=== PATIENT | male | born 1970 | race Caucasian/White ===

== ENCOUNTER 2020-03-26 13:43 | Emergency (ER) | payer OTHER ==
[2020-03-26] MEDS ORDERED: ENDOCET 5-3251 EACH PO ×2 (17:21→17:30)
== END 2020-03-26 19:23 | disposition home or self-care (01) ==
LOC: ER1 13:43
DX: S22.42XA Multiple fractures of ribs, left side, initial encounter for closed fracture (principal); W06.XXXA Fall from bed, initial encounter; Y92.009 Unspecified place in unspecified non-institutional (private) residence as the place of occurrence of the external cause
CPT/HCPCS: 71046; 71111; 99283

== ENCOUNTER 2020-04-03 11:12 | Emergency (ER) | payer OTHER ==
[~2020-04-03 11:12] MED LIST: ENDOCET 5-3251 EACH PO
[2020-04-03] MEDS ORDERED: MOBIC15 MG PO (14:31)
[2020-04-03] MEDS ORDERED: PROTONIX40 MG PO (14:31)
== END 2020-04-03 15:56 | disposition home or self-care (01) ==
LOC: ER1 11:12
DX: S22.32XA Fracture of one rib, left side, initial encounter for closed fracture (principal); J40 Bronchitis, not specified as acute or chronic; J90 Pleural effusion, not elsewhere classified; K21.9 Gastro-esophageal reflux disease without esophagitis; F17.200 Nicotine dependence, unspecified, uncomplicated; Z88.0 Allergy status to penicillin; Z79.899 Other long term (current) drug therapy; W06.XXXA Fall from bed, initial encounter; Y92.009 Unspecified place in unspecified non-institutional (private) residence as the place of occurrence of the external cause
CPT/HCPCS: 71046; 99284

== ENCOUNTER 2020-04-06 11:41 | Emergency (ER) | payer OTHER ==
[~2020-04-06 11:41] MED LIST changes: +MOBIC15 MG PO; +PROTONIX40 MG PO
[2020-04-06 17:22] LABS: RED BLOOD COUNT 4.54 M/UL (4.20-5.50); WHITE BLOOD COUNT 7.9 K/UL (4.5-11.0)
[2020-04-06 18:52] LABS: BUN/CREATININE RATIO 20 (0-10)
== END 2020-04-07 12:59 | disposition home or self-care (01) ==
LOC: ER1 11:41
PROVIDERS: Physician Assistant Medical
DX: S22.42XD Multiple fractures of ribs, left side, subsequent encounter for fracture with routine healing (principal); F10.21 Alcohol dependence, in remission; F17.210 Nicotine dependence, cigarettes, uncomplicated; Z87.19 Personal history of other diseases of the digestive system; Z88.0 Allergy status to penicillin; W19.XXXA Unspecified fall, initial encounter
CPT/HCPCS: 71046; 80053; 85025; 97161; 99285